=== PATIENT | male | born 1965 | race Caucasian/White ===

== ENCOUNTER 2017-03-14 14:22 | Emergency (ER) | payer OTHER ==
--- NOTE | 2017-03-14 14:27 | Emergency Department Report ---
Chief Complaint: Shoulder Injury Stated Complaint: LEFT SHOULDER DISLOCATION Time Seen by Provider: 03/14/17 14:24 - HPI History of Present Illness: PT had fall at work. c/o L shoulder pain and decrease rom - ROS Review of Systems: + shoulder pain - normal rom - Exam Physical Exam: male unable to move L shoulder MSE screening note: Focused history and physical exam performed. Due to findings the following was ordered: xr ED Disposition for MSE Condition: Stable
[2017-03-14] MEDS ORDERED: MORPHINE IM ONE (14:51)
--- NOTE | 2017-03-14 15:00 | Emergency Department Report ---
ED Upper Extremity Inj HPI - General Chief Complaint: Extremity Injury, Upper Stated Complaint: LEFT SHOULDER DISLOCATION Time Seen by Provider: 03/14/17 14:24 Source: patient Mode of arrival: Ambulatory Limitations: No Limitations - History of Present Illness Initial Comments: 51-year-old male with fall onto left shoulder. Patient states that he fell directly on his left shoulder at work. He has no numbness or tingling. He has an obvious deformity. He is unable to range his shoulder completely. Complaint: Injury to:: left -: Sudden Other Extremity Injury: Shoulder: Left Place: work Context: direct blow Associated Symptoms: denies other symptoms. denies: weakness, numbness - Related Data Previous Rx's Medication Instructions Recorded Last Taken Type Ibuprofen [Motrin 600 MG tab] 600 mg PO Q8H PRN #30 tablet 03/14/17 Unknown Rx Allergies Allergy/AdvReac Type Severity Reaction Status Date / Time No Known Allergies Allergy Unverified 03/14/17 14:29 ED Review of Systems ROS: Stated complaint: LEFT SHOULDER DISLOCATION Other details as noted in HPI Constitutional: denies: chills, fever Respiratory: denies: cough, orthopnea Cardiovascular: denies: chest pain, palpitations, syncope Gastrointestinal: denies: nausea, vomiting Musculoskeletal: other (left shoulder injury). denies: back pain, myalgia Skin: denies: lesions, change in color Neurological: denies: headache, numbness ED Past Medical Hx - Past Medical History Previous Medical History?: No - Social History Smoking Status: Never Smoker Substance Use Type: None - Medications Home Medications: Home Medications Medication Instructions Recorded Confirmed Last Taken Type Ibuprofen [Motrin 600 MG tab] 600 mg PO Q8H PRN #30 tablet 03/14/17 Unknown Rx ED Physical Exam - General Limitations: No Limitations General appearance: alert, other (uncomfortable appearing) - Head Head exam: Present: atraumatic, normocephalic - Respiratory Respiratory exam: Present: normal lung sounds bilaterally, respiratory distress - Cardiovascular Cardiovascular Exam: Present: regular rate, normal rhythm - Expanded Upper Extremity Exam Left Shoulder Exam: Present: dislocation, other (obvious deformity) Elbow exam: Present: normal inspection, full ROM. Absent: tenderness Hand Wrist exam: Present: normal inspection, full ROM. Absent: tenderness, swelling ED Course Vital Signs 03/14/17 03/14/17 03/14/17 14:29 14:46 14:51 Temperature 98.7 F Pulse Rate 135 H Respiratory 20 Rate Blood Pressure 146/90 144/85 O2 Sat by Pulse 100 98 96 Oximetry 03/14/17 03/14/17 03/14/17 14:59 15:01 15:11 Temperature Pulse Rate Respiratory 18 Rate Blood Pressure 137/80 137/80 O2 Sat by Pulse 94 96 Oximetry 03/14/17 15:20 Temperature Pulse Rate Respiratory 18 Rate Blood Pressure O2 Sat by Pulse 100 Oximetry - Orthopedic Joint Reduction Joint #1 Consent Obtained: verbal consent Time Out Performed: Yes Side: left Joint Reduction Location: shoulder Analgesia: none Shoulder Technique Used (if applicable): scapula manipulation Post-Reduction Neuro Exam: intact Post-Reduction Vascular Exam: intact Post Reduction X-Ray Obtained: Yes Post Reduction X-Ray Results: reduced Splint Applied: Yes Patient Tolerated Procedure: well ED Medical Decision Making - Medical Decision Making Patient with obvious shoulder dislocation on clinical exam. Plan did reduce with scapular manipulation. I used a director of managed care to described the procedure to the patient. He understands. The patient was placed prone and will reduce the shoulder after a shot of IM morphine. Shoulder reduced with scapular manipulation. Patient to be discharged with sling. Plan to discharge him with NSAIDs and will give her referral to orthopedics. Critical care attestation.: If time is entered above; I have spent that time in minutes in the direct care of this critically ill patient, excluding procedure time. ED Disposition Clinical Impression: Shoulder dislocation Disposition: DC-01 TO HOME OR SELFCARE Is pt being admited?: No Condition: Stable Instructions: Shoulder Dislocation (ED) Additional Instructions: Por favor use la honda para la prxima semana. Seguimiento con el ortopedista. Puede veronica ibuprofeno para controlar el dolor. No use saleem hombro o brazo para el trabajo pesado en el transcurso de la prxima semana. No volvi al trabajo pesado hasta que usted siga con la ortopedia. Prescriptions: Ibuprofen [Motrin 600 MG tab] 600 mg PO Q8H PRN #30 tablet PRN Reason: Pain Referrals: PRIMARY CAREMD [Primary Care Provider] - 3-5 Days VENICE BRUSH MD [Staff Physician] - 3-5 Days
[2017-03-14 15:20] VITALS: BP 137/80
--- NOTE | 2017-03-14 15:24 | XRay Report ---
LEFT SHOULDER, 2 VIEWS History: Pain after fall. Findings: An anterior, inferior dislocation of the left glenohumeral joint is identified. No obvious fracture. Impression: Left shoulder dislocation.
--- NOTE | 2017-03-14 15:25 | XRay Report ---
LEFT SHOULDER, 2 VIEWS History: Pain, postreduction film. Findings: The anterior, inferior dislocation at the left glenohumeral joint has been reduced. There is no evidence for displaced fracture. The remainder of the left shoulder is within normal limits. Impression: Successful reduction of the left shoulder dislocation.
== END 2017-03-14 16:29 | disposition home or self-care (01) ==
LOC: ED 14:22
DX: S43.005A Unspecified dislocation of left shoulder joint, initial encounter (principal); X58.XXXA Exposure to other specified factors, initial encounter; Y93.9 Activity, unspecified; Y92.9 Unspecified place or not applicable; Y99.9 Unspecified external cause status
CPT/HCPCS: 23650; 73030; 96372; 99283; J2270